=== PATIENT | female | born 1950 | race Caucasian/White ===

== ENCOUNTER → 2017-10-02 | Outpatient (CLI) | payer MEDICARE ==
--- NOTE | 2017-10-02 14:15 | RADRPT ---
EXAM DATE/TIME: 10/02/2017 12:09 [place] COMPARISON: No previous studies available for comparison. INDICATIONS : Low back pain for 1 year MEDICAL HISTORY : None. SURGICAL HISTORY : None. ENCOUNTER: Initial ACUITY: >1 year PAIN SCORE: 7/10 LOCATION: l spine FINDINGS: AP, lateral and oblique views of the lumbar spine were obtained and demonstrate 5 nonrib-bearing lumb ar-type vertebra with mild to moderate scoliosis. There is a grade 1 anterior spondylolisthesis of L3 on L4 of approximately 3-4 mm. Degenerative disc changes are present at the L3-4 through L5-S1 level s with disc space narrowing and hypertrophic change. Degenerative joint changes are also noted involv ing the lower facet joints with sclerosis and joint space loss. CONCLUSION: 1. Grade 1 anterior spondylolisthesis of L3 on L4. 2. Degenerative disc change in the lower lumbar spine. 3. Degenerative joint changes in the lower lumbar spine. 4. Mild to moderate scoliosis. Marciano Ferrell MD on October 02, 2017 at 14:11 Board Certified Radiologist. This report was verified electronically.
== END ==
LOC: HRAD 11:44
PROVIDERS: ATTEND Family Medicine
DX: M54.16 Radiculopathy, lumbar region (principal)
CPT/HCPCS: 72110

== ENCOUNTER → 2018-02-23 | Outpatient (CLI) | payer MEDICARE ==
--- NOTE | 2018-02-23 09:41 | RADRPT ---
EXAM DATE: 02/23/2018 8:21 AM EDT AGE/SEX: 67 years / Female INDICATIONS: . Back pain radiation down right side. CLINICAL DATA: This is the patient's sequela encounter. Patient reports that signs and symptoms have been present for 4 - 6 months and indicates a pain score of 3/10. MEDICAL/SURGICAL HISTORY: Hypertension. section. COMPARISON: No prior exams available for comparison. TECHNIQUE: Multiplanar, multisequence MRI of the lumbar spine was performed without contrast. Patie nt was scanned in a sitting position; neutral, flexion, and extension scans were performed in the sa gittal plane. FINDINGS: Vertebra: The lumbar vertebral bodies are normal in height. There are type I endplate changes at the L3-L4 level. There is anterior subluxation of L3 on L4 in the order of 3 mm. Conus: Normal level and configuration. T12-L1: The thecal sac has a normal diameter. No evidence of disc bulge or protrusion. The neural foramina are patent bilaterally. L1-L2: The thecal sac has a normal diameter. No evidence of disc bulge or protrusion. The neural foramina are patent bilaterally. L2-L3: There is mild diffuse disc bulge. This is a very mild impression on the anterior aspect of t he thecal sac. There continues to be CSF around the nerve roots. There is mild facet hypertrophy. The neural foramina are patent bilaterally. L3-L4: Again noted is the anterior subluxation of L3 on L4. There are prominent discogenic type I e ndplate changes at this level. The disc demonstrates decreased height. The disc maintains its alignme nt with the superior aspect of L4 creating a bulge like configuration. There is moderate facet hypert rophy. These changes lead to moderate to severe stenosis with no significant CSF seen around the nerv e roots. The narrowing of the thecal sac is most prominent at the left lateral recess level. There is narrowing of the left neural foramina. The right neural foramina is patent. L4-L5: The disc demonstrates mild decreased height and a vacuum phenomenon. There is mild diffuse disc bulge being asymmetric and worse on the left. There is moderate facet hypertrophy and ligamentum flavum hypertrophy. These changes lead to moderate narrowing of thecal sac with a very minimal amoun t of CSF seen around the nerve roots. There is narrowing of the left neural foramina. The right neura l foramina is patent. L5-S1: The distance is decreased height and decreased signal. There is mild diffuse disc bulge. The re is moderate to severe facet hypertrophy being worse on the right. There is mild narrowing of theca l sac with a small amount CSF seen around the nerve roots. The bulging disc does abut the S1 nerve ro ot at the lateral recess levels. There is very prominent narrowing of the right neural foramina. Ther e is mild narrowing of the left neural foramina. CONCLUSION: 1. Moderate to severe stenosis at the L3-L4 level caused by combination of anterior subluxation of L 3 on L4, disc bulge configuration, and facet hypertrophy. 2. Moderate stenosis at the L4-L5 level. 3. Mild impression on thecal sac the L5-S1 level especially at the lateral recess levels. 4. Left neural foraminal narrowing at the L3-L4 and L4-L5 levels and bilateral neural foraminal narr owing being much more prominent on the right at the L5-S1 level. Electronically signed by: Volodymyr Maria MD 02/23/2018 9:39 AM EDT
== END ==
LOC: HRAD 06:43
DX: M54.16 Radiculopathy, lumbar region (principal); M46.1 Sacroiliitis, not elsewhere classified
CPT/HCPCS: 72148